=== PATIENT | male | born 1990 | race Caucasian/White ===

== ENCOUNTER 2016-09-27 02:35 | Emergency (ER) | payer SELFPAY ==
--- NOTE | ~2016-09-27 | ER ---
PATIENT'S NAME: ESTELA LYON [facility] AGE: 25 Y [address] ROOM: [place] [address] LOCATION: [facility] ADMIT DATE: 09/27/2016 ER/Outpatient Report DISCHARGE DATE: 09/27/2016 FAMILY PHYSICIAN: PHYSICIAN, NO ATTENDING PHYSICIAN: Tish Cobian HISTORY OF PRESENT ILLNESS: This is a 25-year-old male, who presents today with chief complaint of shortness of breath, feeling dizzy and some left-sided chest pain that started about half an hours ago. He says he did use meth and drank a lot alcohol about 2 hours ago. He describes the pain as 6/10. Denies any nausea or vomiting. He says he feels lightheaded and has not passed out though. Denies any other complaints. He does not report any recent surgeries, recent periods of immobility or recent long trips. Essentially, no PE risk factors. He does smoke about a pack a day though. Denies any family history though. There is no history of sudden cardiac arrest in his family. His parents are alive and healthy. PAST MEDICAL HISTORY: None. PAST SURGICAL HISTORY: None. SOCIAL HISTORY: He smokes a pack per day. He does use drugs. He did meth 2 hours ago and drinks alcohol pretty regularly. MEDICATIONS: None. ALLERGIES: NONE. REVIEW OF SYSTEMS: Reviewed by me and negative with the exception of those discussed in the HPI. PHYSICAL EXAMINATION: VITAL SIGNS: The patient is 5 feet 9 inches. His weight 77.9 kilos, blood pressure is 149/87, heart rate 87, respiratory rate 16, temperature is 97 Fahrenheit and saturating 97% on room air. GCS 15. GENERAL: The patient appears tired, but he is not anxious. He is not sweaty or diaphoretic. He looks well. Patent airway. He is speaking in full sentences. Unlabored breathing. He feels warm and well perfused. NEURO: He is alert and oriented x4. GCS is 15. Not disoriented. Not PATIENT'S NAME: ESTELA LYON [facility] AGE: 25 Y [address] ROOM: [place] [address] LOCATION: [facility] ADMIT DATE: 09/27/2016 ER/Outpatient Report DISCHARGE DATE: 09/27/2016 FAMILY PHYSICIAN: PHYSICIAN, NO ATTENDING PHYSICIAN: Tish Cobian lethargic either. Just seems a little bit sleepy, but says he had been drinking alcohol. He smells a little bit like it to. CHEST: Normal inspection. HEART: Regular rate and rhythm, 87 beats per minute at this time. Slightly hypertensive at 149/87, but with strong pulses. Cap refill less than 2 seconds. He has no mottling. LUNGS: His lung sounds sound clear. He has no labored breathing, tachypnea or accessory muscle use. He is saturating 100% on room air. No wheezing, rales or rhonchi. No retractions. No chest wall tenderness. No accessory muscle use. ABDOMEN: Soft, nontender, nondistended. He has no guarding or rebound. EXTREMITIES: He moves all extremities. He has no pedal edema. SKIN: Warm, dry, intact without any rash or mottling. EMERGENCY ROOM COURSE: An EKG was done, which on my read just shows sinus rhythm on this EKG, he has 84 beats per minute, slightly wavy baseline, but there is no ST elevation. There is no ST depression. He does have some biphasic T-waves in III and AVF, but otherwise pretty unremarkable EKG. Discussed with the patient and likely think this is from meth and alcohol use. He is otherwise doing quite well and stable vital signs. We will be discharging him home. He denies any other co-ingestions except for meth and alcohol. Denies cocaine PCD or other use. We will have him follow up with his primary care doctor. I encouraged him not to do drugs. IMPRESSION: Meth use. MD BEATRICE WANG/keven /[id number] d: 09/27/16618 t: 09/29/16 1815, OUTPATIENT REPORT
== END 2016-09-27 02:47 | disposition disaster alternative care site (69) ==
LOC: GMED 02:35
DX: F15.90 Other stimulant use, unspecified, uncomplicated (principal); F17.210 Nicotine dependence, cigarettes, uncomplicated